=== PATIENT | male | born 1950 | race Caucasian/White ===

== ENCOUNTER → 2023-07-07 07:23 | Outpatient (REF) | payer BC, SELFPAY | LOC: MRI 07:23 | PROVIDERS: ATTENDING PHYSICIAN Specialist; FAMILY PHYSICIAN Internal Medicine Gastroenterology | DX: M54.12 Radiculopathy, cervical region (principal) | CPT/HCPCS: 72141 ==

== ENCOUNTER → 2023-11-13 12:43 | Outpatient (REF) | payer MEDICARE, OTHER, SELFPAY | LOC: PAVMRI 12:43 | PROVIDERS: ATTENDING PHYSICIAN Specialist | DX: M48.061 Spinal stenosis, lumbar region without neurogenic claudication (principal) | CPT/HCPCS: 72148 ==

== ENCOUNTER → 2025-02-27 09:38 | Outpatient (REF) | payer MEDICARE, OTHER, SELFPAY | LOC: PAVMRI 09:38 | PROVIDERS: ATTENDING PHYSICIAN Anesthesiology | DX: M51.26 Other intervertebral disc displacement, lumbar region (principal) | CPT/HCPCS: 72148 ==